=== PATIENT | male | born 1980 | race African-American/Black ===

== ENCOUNTER 2022-03-14 03:44 | Emergency (ER) | payer MEDICAID ==
[~2022-03-14] VITALS: Ht 180.3 cm; Wt 181.8 kg
[2022-03-14] MEDS ORDERED: HYDROGEN PEROXIDE 118 ML SOLUTION TP ONE (04:00)
[2022-03-14] MEDS ORDERED: NEOMYCIN/POLYMYXIN B/HYDROCORT 10 ML OTIC SUSPENSION AD ONE (04:00)
[2022-03-14] MEDS ORDERED: CEPH-558 PO (04:31)
[2022-03-14] MEDS ORDERED: CORTSOL AD (04:31)
[2022-03-14 04:39] VITALS: BP 123/79
== END 2022-03-14 04:39 | disposition home or self-care (01) ==
LOC: EMS 03:48
DX: H60.91 Unspecified otitis externa, right ear (principal); H66.91 Otitis media, unspecified, right ear
CPT/HCPCS: 99284; Z7502; Z7610